=== PATIENT | male | born 1965 | race Caucasian/White ===

== ENCOUNTER 2017-10-12 14:06 | Emergency (ER) | payer OTHER, SELFPAY ==
[2017-10-12 15:06] LABS: #Basophils 0.1 thou/uL (0.0-0.2); #Eosinphils 0.3 thou/uL (0.0-0.7); #Lymphocytes 2.2 thou/uL (1.20-3.40); #Monocytes 0.8 thou/uL (0.11-0.59); #Neutrophils 4.9 thou/uL (1.40-6.50); %Basophils 1.3 % (0.0-1.0); %Eosinophils 3.8 % (0.0-10.0); %Lymphocytes 26.8 % (21.0-51.0); %Monocytes 9.1 % (0.0-10.0); ALT (SGPT) 23 U/L (8-55); AST (SGOT) 19 U/L (5-34); Albumin 4.3 g/dL (3.5-5.0); Alkaline Phosphatase 75 U/L (40-150); Anion Gap 13 mmol/L (10-20); BUN (Urea Nitrogen) 11 mg/dL (8.4-25.7); Bilirubin, Total 0.7 mg/dL (0.2-1.2); CK (CPK) 74 U/L (30-200); Calc. Creatinine Clearance 0 mL/min (70-130); Calcium 9.5 mg/dL (7.8-10.44); Carbon Dioxide 22 mmol/L (22-29); Chloride 107 mmol/L (98-107); Estimated GFR-MDRD 72; Globulin 2.9 g/dL (2.4-3.5); Glucose 99 mg/dL (70-105); Hemoglobin 16.9 g/dL (14.0-18.0); Lipase 49 U/L (8-78); Mean Corpuscular HGB CONC 36.1 g/dL (32.0-36.0); Mean Corpuscular Hemoglobin 32.9 pg (27.0-31.0); Mean Corpuscular Volume 91.1 fl (80.0-94.0); Mean Platelet Volume 7.2 fL (7.4-10.4); Platelet Count 238 thou/uL (130-400); Potassium 4.1 mmol/L (3.5-5.1); Protein, Total 7.2 g/dL (6.0-8.3); RBC Distribution Width 11.2 % (11.5-14.5); Red Blood Cell (RBC) Count 5.14 mill/uL (4.70-6.10); Sodium 138 mmol/L (136-145); White Blood Cell (WBC) Count 8.3 thou/uL (4.8-10.8)
[2017-10-12 15:07] LABS: Troponin I 0.017 ng/mL (< 0.028)
--- NOTE | 2017-10-12 15:36 | RAD ---
ONE VIEW CHEST: HISTORY: Pain. COMPARISON: None. FINDINGS: Normal cardiac silhouette. Lungs and pleural spaces are clear. NO pneumothorax or osseous abnormali ty. IMPRESSION: No acute cardiopulmonary process. POS: [facility]
== END 2017-10-12 15:33 | disposition home or self-care (01) ==
LOC: SCSER 14:06
DX: R07.2 Precordial pain (principal); I25.2 Old myocardial infarction; F17.200 Nicotine dependence, unspecified, uncomplicated; Z79.82 Long term (current) use of aspirin
CPT/HCPCS: 71045; 80053; 82553; 83690; 84484; 85025; 93005

== ENCOUNTER 2020-07-10 13:49 | Outpatient (CLI) | payer MEDICARE ==
--- NOTE | 2020-07-10 14:58 | RAD ---
EXAM: XR Cervical Spine 4 View Min PROVIDED CLINICAL HISTORY: Cervical stenosis. Prior surgery cervical spine. COMPARISON: None FINDINGS: Postoperative changes related to posterior fusion with bipedicular screws and posterior rods transfix the C4-C7 levels. Laminectomy defects are also present at these levels. No hardware complication is seen. There is no subluxation or evidence of abnormal translational motion between flexion and ext ension views. Vertebral body heights are within normal limits. No fracture is seen. Prevertebral soft tissues are within normal limits. IMPRESSION: Postoperative changes cervical spine.
== END 2020-07-10 13:50 | disposition home or self-care (01) ==
LOC: TBSIIMAG 13:49 → BICMRI 13:50
PROVIDERS: ATTEND Nurse Practitioner Family
DX: M48.02 Spinal stenosis, cervical region (principal); Z98.890 Other specified postprocedural states
CPT/HCPCS: 72050; 82565

== ENCOUNTER 2021-05-23 07:37 | Outpatient (CLI) | payer MEDICARE | END 2021-05-23 07:38 | disposition home or self-care (01) | LOC: TBSIIMAG 07:37 | PROVIDERS: ATTEND Nurse Practitioner Family | DX: M48.02 Spinal stenosis, cervical region (principal); M47.813 Spondylosis without myelopathy or radiculopathy, cervicothoracic region; Z98.890 Other specified postprocedural states | CPT/HCPCS: 72141 ==

== ENCOUNTER 2022-01-23 12:24 | Outpatient (CLI) | payer MEDICARE | END 2022-01-23 12:25 | disposition home or self-care (01) | LOC: TBSIIMAG 12:24 | PROVIDERS: ATTEND Specialist | DX: M48.02 Spinal stenosis, cervical region (principal); M47.812 Spondylosis without myelopathy or radiculopathy, cervical region; M47.813 Spondylosis without myelopathy or radiculopathy, cervicothoracic region; Z98.890 Other specified postprocedural states | CPT/HCPCS: 72141 ==

== ENCOUNTER 2022-02-14 12:20 | Outpatient (CLI) | payer MEDICARE | END 2022-02-14 12:21 | disposition home or self-care (01) | LOC: TBSIIMAG 12:20 | PROVIDERS: ATTEND Specialist | DX: M51.16 Intervertebral disc disorders with radiculopathy, lumbar region (principal); M51.27 Other intervertebral disc displacement, lumbosacral region; M51.87 Other intervertebral disc disorders, lumbosacral region | CPT/HCPCS: 72148 ==